=== PATIENT | female | born 1935 | race Caucasian/White ===

== ENCOUNTER 2019-05-09 11:34 | Emergency (ER) | payer OTHER ==
[~2019-05-09] VITALS: Ht 144.8 cm; Wt 49.4 kg
[2019-05-09 12:00] LABS: HEMATOCRIT 39.4 % (37.0-47.0); HEMOGLOBIN 13.2 gm/dL (12.0-15.0); MCH 30.7 pg (26.0-34.0); MCHC 33.4 g/dL (28.0-37.0); MCV 91.8 fL (80.0-100.0); MPV 7.4 fl. (7.2-11.1); RBC 4.3 mil/uL (4.20-5.00); RDW-CV 14.1 % (10.5-14.5); WBC 5.5 thou/uL (4.0-11.0)
[2019-05-09 12:10] LABS: CALCIUM 8.9 mg/dL (8.5-10.1); CREATININE 0.9 mg/dL (0.6-1.3); POTASSIUM 3.7 mmol/L (3.5-5.1)
[2019-05-09 12:15] LABS: ALBUMIN 3.7 g/dL (3.4-5.0); TOTAL BILIRUBIN 0.4 mg/dL (<0.1-1.0); TOTAL PROTEIN 6.8 g/dL (6.4-8.2)
[2019-05-09 14:46] VITALS: BP 137/62
--- NOTE | 2019-05-10 10:10 | EKG ---
[place] [address] ELECTROCARDIOGRAM REPORT Name: MIGUEL MCFARLANE [id number] Admission: 05/09/19 Attend Phys: Discharge: 05/09/19 Date of : 37 Date of Service: 05/09/19 1142 Report #: [id number] THIS REPORT FOR: //name// [facility] ED Test Date: 2019-05-09 Test Time: 11:42:16 Pat Name: MIGUEL MCFARLANE Department: Room: Gender: F [employer] Coordinator: [facility] : 1935 Requested By: Melvin Neff Order Number: [id number] Doris MD: Lele Gracia Measurements Intervals [place] Rate: 68 P: 23 TX: 178 QRS: -25 QRSD: 83 T: 57 QT: 377 QTc: 401 Interpretive Statements Sinus rhythm artifact noted Borderline left axis deviation Probable anterior infarct, age indeterminate No previous ECG available for comparison Electronically Signed On 05-10-2019 10:09:23 CDT by Lele Gracia [email or web address] <ELECTRONICALLY SIGNED> By: Lele Gracia MD, [facility] 05/10/19 1009 1142 1142 Lele Gracia MD, FAC /EPI
== END 2019-05-09 14:47 | disposition home or self-care (01) ==
LOC: M.ERS 11:34
PROVIDERS: Emergency Medicine Emergency Medical Services
DX: R00.2 Palpitations (principal); I10 Essential (primary) hypertension; E78.5 Hyperlipidemia, unspecified

== ENCOUNTER → 2019-06-10 | Outpatient (CLI) | payer OTHER ==
--- NOTE | 2019-06-10 14:30 | 2DMMODE ---
[place] [address] 2 D/M-MODE ECHOCARDIOGRAM Name: MIGUEL MCFARLANE Joan Room: [facility]#: [id number] Admission: 06/10/19 Attend Phys: Ricky Andrdae, Discharge: Date of : 37 Date of Service: 06/10/19 1429 Report #: [id number] THIS REPORT FOR: cc: SUJATA - No family physician/PCP FAM - No family physician/PCP Ricky Andrade MD [facility] ~ APPROVED REPORT Study performed: 06/10/2019 08:53:46 EXAM: Comprehensive 2D, Doppler, and color-flow Echocardiogram Patient Location: Out-Patient BSA: 1.40 HR: 58 bpm Rhythm: NSR Other Information Study Quality: Good Indications Abnormal ECG Palpitations 2D Dimensions IVSd: 9.85 (7-11mm) LVOT Diam: 18.51 (18-24mm) LVDd: 40.32 mm PWd: 7.77 (7-11mm) Ascending Ao: 27.98 (22-36mm) LVDs: 24.89 (25-40mm) Aortic Root: 24.52 mm Volumes Left Atrial Volume (Systole) LA ESV Index: 21.10 mL/m2 Aortic Valve AoV Peak Johnny.: 1.09 m/s AO Peak Gr.: 4.73 mmHg LVOT Max P.54 mmHg AO Mean Gr.: 2.57 mmHg LVOT Mean P.30 mmHg LVOT Max V: 0.80 m/s AO V2 VTI: 28.46 cm LVOT Mean V: 0.53 m/s ANGEL (VTI): 2.07 cm2 LVOT V1 VTI: 21.85 [place] [address] 2 D/M-MODE ECHOCARDIOGRAM Name: MIGUEL MCFARLANE Room: [facility]#: [id number] Admission: 06/10/19 Attend Phys: Ricky Andrade, Discharge: Date of : 37 Date of Service: 06/10/19 1429 Report #: [id number] Mitral Valve E/A Ratio: 0.94 MV Decel. Time: 203.05 ms MV E Max Johnny.: 0.77 m/s MV PHT: 58.88 ms MVA (PHT): 3.74 cm2 TDI E/Lateral E': 8.56 E/Medial E': 11.00 Medial E' Johnny.: 0.07 m/s Lateral E' Johnny.: 0.09 m/s Pulmonary Valve PV Peak Johnny.: 0.70 m/s PV Peak Gr.: 1.99 mmHg Tricuspid Valve RAP Estimate: 5.00 mmHg TR Peak Gr.: 22.00 mmHg RVSP: 27.00 mmHg PA Pressure: 27.00 mmHg Left Ventricle The left ventricle is normal size. There is normal LV segmental wall motion. There is normal left ventricular wall thickness. Left ventricular systolic function is normal. LVEF is 60-65%. Grade I - abnormal relaxation pattern. Right Ventricle The right ventricle is normal size. The right ventricular systolic function is normal. Atria The left atrium size is normal. The right atrium size is normal. Aortic Valve Mild aortic valve sclerosis. No aortic regurgitation is present. There is no aortic valvular stenosis. Mitral Valve The mitral valve is normal in structure. Mild mitral regurgitation. No evidence of mitral valve stenosis. Tricuspid Valve The tricuspid valve is normal in structure. Mild tricuspid regurgitation. [place] [address] 2 D/M-MODE ECHOCARDIOGRAM Name: MIGUEL MCFARLANE Joan [id number] Admission: 06/10/19 Attend Phys: Ricky Andrade, Discharge: Date of : 37 Date of Service: 06/10/19 1429 Report #: [id number] Pulmonic Valve The pulmonary valve is normal in structure. There is no pulmonic valvular regurgitation. Great Vessels The aortic root is normal in size. IVC is normal in size and collapses >50% with inspiration. Pericardium There is no pericardial effusion. <Conclusion> The left ventricle is normal size. There is normal left ventricular wall thickness. Left ventricular systolic function is normal. LVEF is 60-65%. Grade I - abnormal relaxation pattern. Mild aortic valve sclerosis. Mild mitral regurgitation. Mild tricuspid regurgitation. No pulmonary hypertension. IVC is normal in size and collapses >50% with inspiration. <ELECTRONICALLY SIGNED> By: Ricky Andrade MD, FACC 06/10/19 1429 1429 1429 Ricky Andrade MD, FACC /INF
--- NOTE | 2019-06-10 14:37 | CARDNUC ---
[place] [address] CARDIAC NUCLEAR IMAGING REPORT Name: MIGUEL MCFARLANE Joan Room: [facility]#: [id number] Admission: 06/10/19 Attend Phys: Ricky Andrade, Discharge: Date of : 37 Date of Service: 06/10/19 1435 Report #: [id number] THIS REPORT FOR: cc: FAM - No family physician/PCP FAM - No family physician/PCP Ricky Andrade MD [facility] ~ APPROVED REPORT Study performed: 06/10/2019 09:53:14 Exam: Nuclear Stress Test Indication: Palpitations , Abnormal EKG Patient Location: Out-Patient Stress Tech: Michelle Ellis Stress Nurse: Dora Gonzalez RN NM Tech:GRAYSON Beckham Ht: 4 ft 9 in Wt: 101 lbs BSA: 1.35 m2 BMI: 21.85 Medical History Medical History: HTN, Hyperlipidemia Medications: losartan, lovastatin Allergies: No known drug allergies Cardiac Risk Factors: Age, HTN, Hyperlipidemia Exercise History: Indeterminate Stress Test Details Stress Test: Pharmacologic stress testing performed using 0.4 mg of regadenoson per 5 mL given IV over 10 seconds. Reason for pharmacologic stress test: LBBB. HR Resting HR: 61 bpm Max Heart Rate (APMHR): 138 bpm Max HR Achieved: 106 bpm Target HR (85% APMHR): 117 bpm % of APMHR: 76 Recovery HR: 88 bpm BP Resting BP: 147/99 mmHg Max BP: 125/65 mmHg ECG Resting ECG: [place] [address] CARDIAC NUCLEAR IMAGING REPORT Name: MIGUEL MCFARLANE Room: [facility]#: [id number] Admission: 06/10/19 Attend Phys: Ricky Andrade, Discharge: Date of : 37 Date of Service: 06/10/19 1435 Report #: [id number] Stress ECG: Sinus Rhythm, LBBB Arrhythmia: None Recovery ECG: Sinus Rhythm, LBBB Recovery Arrhythmia: None Clinical Reason for Termination: Completed protocol Exercise duration: 0 min sec Exercise capacity: 1 METs The patient had no significant cardiac symptoms with Lexiscan infusion. Stress ECG Conclusion The baseline 12-lead EKG shows sinus rhythm without significant ST segment or T wave abnormality. EKGs obtained during and post Lexiscan infusion showed sinus rhythm with left bundle-branch block that persisted throughout the stress and recovery periods. No stress-induced arrhythmias were noted. NM EXAM: Myocardial Perfusion REST/STRESS Imaging Protocol: Rest Tc-99m/Stress Tc-99m 1 day Resting Data Rest SPECT myocardial perfusion imaging was performed in supine position 30 minutes following the intravenous injection of 10.2 mCi of Tc-99m Sestamibi. Time of rest injection: 08 Date: 06/10/2019 The images were gated to evaluate regional wall motion and calculate left ventricular ejection fraction. Administration Route: IV Administration Site: Left AC Pharmacologic Stress Pharmacologic stress test was performed by injecting Regadenoson 0.4 mg IV push followed by the intravenous injection of 29.6 mCi of Tc-99m Sestamibi. Time of stress injection: 1000 Date: 06/10/2019 Administration Route: IV Administration Site: Left AC Gated Stress SPECT was performed 40 minutes after stress injection. The images were gated to evaluate regional wall motion and calculate left ventricular ejection fraction. Prone imaging was [place] [address] CARDIAC NUCLEAR IMAGING REPORT Name: MERCEDES MCFARLANERAZIA Franco Room: [facility]#: [id number] Admission: 06/10/19 Attend Phys: Ricky Andrade, Discharge: Date of : 37 Date of Service: 06/10/19 1435 Report #: [id number] Study: Good Artifact: Mild Breast artifact Study Data At rest, the left ventricular ejection fraction was 71%.. Post stress, the left ventricular ejection was 77%.. TID = 0.96. Perfusion Perfusion images show a moderate size mild intensity defect involving the distal anterior wall and apex that is noted on both rest and stress studies consistent with breast attenuation artifact. Wall motion in this region is normal. No other significant fixed or reversible defects were identified. Wall Motion Normal left ventricular wall motion. Nuclear Conclusion ECG Findings: non-diagnostic Clinical Findings: negative for ischemia Nuclear Findings: negative for ischemia Exercise Capacity: not assessed Left Ventricular Function: normal Risk Study: low Myocardial perfusion images show no defect to suggest ischemia. The fixed defect of the anteroapical wall is likely due to breast attenuation artifact. Global LV systolic function is normal with no evidence of wall motion abnormality. This is a low risk study. <Conclusion> The baseline 12-lead EKG shows sinus rhythm without significant ST segment or T wave abnormality. EKGs obtained during and post Lexiscan infusion showed sinus rhythm with left bundle-branch block that persisted throughout the stress and recovery periods. No stress-induced arrhythmias were noted. <ELECTRONICALLY SIGNED> By: Ricky Andrade MD, FACC 06/10/19 1435 1435 1435 Ricky Andrade MD, FACC /INF
== END ==
LOC: M.CRD 05-24 13:50 → M.NUC 07:36
DX: I10 Essential (primary) hypertension (principal); R00.2 Palpitations